=== PATIENT | female | born 1985 | race American Indian/Alaskan Native ===

== ENCOUNTER 2017-03-25 20:27 | Emergency (ER) | payer MEDICAID, OTHER ==
[2017-03-25 20:38] VITALS: BP 145/72; BMI 29.0
[2017-03-25 21:31] LABS: URINE BILIRUBIN NEGATIVE (NEGATIVE); URINE BLOOD MODERATE (NEGATIVE); URINE GLUCOSE (UA) NEGATIVE (NEGATIVE); URINE LEUKOCYTE ESTERASE LARGE Leu/uL (NEGATIVE); URINE NITRATE NEGATIVE (NEGATIVE); URINE PROTEIN NEGATIVE mg/dL (<30 mg/dL); URINE UROBILINOGEN 0.2 E.U./dL (<1 E.U./dL)
[2017-03-25 21:35] LABS: URINE APPEARANCE CLEAR (CLEAR); URINE COLOR LIGHT YELLOW (YELLOW)
[2017-03-25 22:08] LABS: ALB/GLOB RATIO 1.1 (1.1-1.8); ALBUMIN 4.4 g/dL (3.0-4.8); ALT/SGPT 32 U/L (7-56); AST/SGOT 31 U/L (15-39); BLOOD UREA NITROGEN 10 mg/dL (7-21); CALCIUM 9.2 mg/dL (8.4-10.5); GFR AFRICAN-AMERICAN > 60; GFR NON-AFRICAN AMERICAN > 60
[2017-03-25 22:09] LABS: HEMOGLOBIN 11.3 gm/dL (12.0-16.0); RBC 4.32 10^6/uL (3.5-6.1)
[2017-03-25 22:10] LABS: BASO # 0.04 K/mm3 (0.0-2.0); BASO % 0.8 % (0.0-3.0); EOS # 0.1 (0.0-0.7); GRAN # 2.77 (1.4-6.5); GRAN % 55.1 % (50.0-68.0); LYMPH # 1.8 (1.2-3.4); LYMPH % 35.7 % (22.0-35.0); MEAN CELL VOLUME 77.1 fL (80.0-105.0); MEAN CORPUSCULAR HEMOGLOBIN 26.2 pg (25.0-35.0); MEAN CORPUSCULAR HGB CONC 33.9 g/dl (31.0-37.0); MEAN PLATELET VOLUME 9.6 fl (7.0-11.0); MONO # 0.4 (0.1-0.6); MONO % 7.4 % (1.0-6.0); PLATELET COUNT 365 10^3/uL (120.0-450.0); RED CELL DISTRIBUTION WIDTH 14.6 % (11.5-14.5)
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
[2017-03-25 22:35] LABS: URINE BACTERIA MOD (NEG)
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
[2017-03-25 23:23] VITALS: PULSE 90; RESP 16; TEMP 98.5; O2SAT 99
== END 2017-03-25 23:23 | disposition home or self-care (01) ==
LOC: ED 20:27
DX: M54.9 Dorsalgia, unspecified (principal); V49.49XA Driver injured in collision with other motor vehicles in traffic accident, initial encounter; Y92.410 Unspecified street and highway as the place of occurrence of the external cause; O46.90 Antepartum hemorrhage, unspecified, unspecified trimester; O23.40 Unspecified infection of urinary tract in pregnancy, unspecified trimester; Z3A.00 Weeks of gestation of pregnancy not specified

== ENCOUNTER 2017-04-18 15:51 | Emergency (ER) | payer MEDICAID, OTHER ==
[2017-04-18 15:51] VITALS: BMI 29.0
[2017-04-18 16:11] VITALS: BP 114/69; PULSE 90; RESP 16; TEMP 98.9; O2SAT 98
[2017-04-18] MEDS ORDERED: Sodium Chloride 0.9% 1,000 ML IV STA (16:32)
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
[2017-04-18 17:07] LABS: BASO # 0.02 K/mm3 (0.0-2.0); BASO % 0.4 % (0.0-3.0); EOS % 0.7 % (1.5-5.0); GRAN # 3.37 (1.4-6.5); GRAN % 60.8 % (50.0-68.0); HEMOGLOBIN 11.2 g/dL (12.0-16.0); LYMPH # 1.7 (1.2-3.4); LYMPH % 31.4 % (22.0-35.0); MEAN CELL VOLUME 76.3 fl (80.0-105.0); MEAN CORPUSCULAR HEMOGLOBIN 26.2 pg (25.0-35.0); MEAN CORPUSCULAR HGB CONC 34.4 g/dl (31.0-37.0); MEAN PLATELET VOLUME 8.8 fl (7.0-11.0); MONO # 0.4 (0.1-0.6); MONO % 6.7 % (1.0-6.0); PLATELET COUNT 350 10^3/uL (120.0-450.0); RBC 4.27 10^6/uL (3.5-6.1); RED CELL DISTRIBUTION WIDTH 14.8 % (11.5-14.5); WHITE BLOOD COUNT 5.5 10^3/ul (4.5-11.0)
[2017-04-18 17:19] LABS: ALB/GLOB RATIO 1.1 (1.1-1.8); ALBUMIN 4.6 g/dL (3.0-4.8); ALT/SGPT 97 U/L (7-56); AST/SGOT 60 U/L (15-39); BLOOD UREA NITROGEN 7 mg/dL (7-21); CALCIUM 9.8 mg/dL (8.4-10.5); GFR AFRICAN-AMERICAN > 60; GFR NON-AFRICAN AMERICAN > 60
[2017-04-18 17:21] LABS: URINE APPEARANCE CLEAR (CLEAR); URINE BILIRUBIN NEGATIVE (NEGATIVE); URINE BLOOD NEGATIVE (NEGATIVE); URINE COLOR YELLOW (YELLOW); URINE GLUCOSE (UA) NEGATIVE (NEGATIVE); URINE LEUKOCYTE ESTERASE NEGATIVE Leu/uL (NEGATIVE); URINE NITRATE NEGATIVE (NEGATIVE); URINE PROTEIN NEGATIVE mg/dL (<30 mg/dL); URINE UROBILINOGEN 0.2 E.U./dL (<1 E.U./dL)
--- NOTE | 2017-04-18 17:54 | US ---
PROCEDURE: 1st trimester ultrasound HISTORY: pain + test 03/25 COMPARISON: 03/25/2017. TECHNIQUE: Standard protocol for this study/examination. FINDINGS: LMP: 02/28/2017 Prior examinations from the current : 03/25/2017 TECHNIQUE: Real-time 2D imaging, duplex and color Doppler. FINDINGS: Cardiac activity: Present Rate: 166 BPM Measurements: [place] rump length: 1.20 cm Gestational age based on CRL 7 weeks 3 days Gestational age based on gestational sac measurement 6 weeks 6 days. Gestational age derived from LMP: Seven weeks 1 day POLI based on LMP: 12/05/2017. POLI based on biometry: 12/04/2017. Gestational concordance documented Yolk sac identified Uterus: Unremarkable. No Cervical abnormalities: Negative examination for cervical dilatation or effacement. Subchorionic hemorrhage: None ADNEXA: Right: 4.3 x 4.4 x 2.6 cm. Normal Doppler arterial waveform documented. Left: 2.5 x 2.5 x 1.5 cm. Normal Doppler arterial waveform documented Fluid in the cul-de-sac: IMPRESSION: Seven weeks 1 day live intrauterine gestation.
== END 2017-04-18 18:33 | disposition home or self-care (01) ==
LOC: ED 15:51
DX: O20.0 Threatened abortion (principal); Z3A.01 Less than 8 weeks gestation of pregnancy
CPT/HCPCS: 76817; 80053; 81003; 84702; 85025; 87086; 99284; J7040

== ENCOUNTER 2019-01-13 22:17 | Emergency (ER) | payer MEDICAID, OTHER ==
[2019-01-13 22:26] VITALS: RESP 18; BMI 29.8
--- NOTE | 2019-01-13 22:57 | ED PDOC ---
Arrival/HPI - General Chief Complaint: Abdominal Pain Time Seen by Provider: 01/13/19 22:27 Historian: Patient - History of Present Illness Narrative History of Present Illness (Text): 01/13/19 22:58 A 33 year old female, whose past medical history includes anemia, presents to the emergency department complaining of lower abdominal cramping and diarrhea for 3 days. Patient reports 2 days prior to diarrhea starting, she had returned from [facility]. Patient denies any fever, chills, vomiting, chest pain, shortness of breath, any urinary symptoms, back pain or any other complaints at this time. PMD: Dr. Lexii Ross Past Medical History - Provider Review Nursing Documentation Reviewed: Yes Primary Care Provider: Yakelin Cardona - Travel History Have you recently traveled outside [place] w/in the past 3 mons?: Yes If Yes, travel location?: [facility] and [facility] - Infectious Disease Hx of Infectious Diseases: None - Tetanus Immunization Tetanus Immunization: Unknown - Hematological/Oncological Hx Anemia: Yes - Psychiatric Hx Substance Use: No - Anesthesia Hx Anesthesia: No Family/Social History - Physician Review Nursing Documentation Reviewed: Yes Family/Social History: No Known Family HX Smoking Status: Never Smoked Hx Alcohol Use: Yes Frequency of alcohol use: Few days per week Hx Substance Use: No Allergies/Home Meds Allergies/Adverse Reactions: Allergies No Known Allergies Allergy (Verified 01/13/19 22:26) Review of Systems - Physician Review All systems were reviewed & negative as marked: Yes - Review of Systems Constitutional: absent: Fatigue, Fevers, Night Sweats Respiratory: absent: SOB, Cough Cardiovascular: absent: Chest Pain, Palpitations Gastrointestinal: Abdominal Pain (lower abdominal cramping), Diarrhea. absent: Constipation, Nausea, Vomiting, Hematochezia, Hematemesis, Anorexia Genitourinary Female: absent: Dysuria, Frequency, Hematuria, Urine Output Changes Musculoskeletal: absent: Arthralgias, Back Pain, Neck Pain Skin: absent: Rash, Pruritis Neurological: absent: Headache, Dizziness Psychiatric: absent: Anxiety, Depression, Suicidal Ideation Physical Exam Vital Signs Reviewed: Yes Vital Signs Temp Pulse Resp BP Pulse Ox 01/13/19 22:25 97.7 F 84 18 119/77 99 Temperature: Afebrile Blood Pressure: Normal Pulse: Regular Respiratory Rate: Normal Appearance: Positive for: Well-Appearing, Non-Toxic, Comfortable Pain Distress: None Mental Status: Positive for: Alert and Oriented X 3 - Systems Exam Head: Present: Atraumatic Mouth: Present: Moist Mucous Membranes Neck: Present: Normal Range of Motion Respiratory/Chest: Present: Clear to Auscultation, Good Air Exchange. No: Respiratory Distress, Accessory Muscle Use Cardiovascular: Present: Regular Rate and Rhythm, Normal S1, S2. No: Murmurs Abdomen: Present: Tenderness (minimal tenderness in lower abd). No: Distention, Peritoneal Signs, Rebound, Guarding Back: Present: Normal Inspection Upper Extremity: Present: Normal Inspection. No: Cyanosis, Edema Lower Extremity: Present: Normal Inspection. No: Edema Neurological: Present: GCS=15, Speech Normal Skin: Present: Warm, Dry, Normal Color. No: Rashes Psychiatric: Present: Alert, Oriented x 3 Medical Decision Making ED Course and Treatment: 01/13/19 23:00 33 year old female with lower abdominal cramping and diarrhea. Plan: -- Abd/Pelvis CT -- Labs -- Urinalysis -- Reassess and disposition Progress Notes: Patient is nontoxic well appearing with stable vital signs CBC within normal limits CMP within normal limits Urinalysis within normal limits CAT scan : 01/14/19 01:04 COMMENTS: Diffuse mucosal colonic enhancement. Fluid filled small bowels. Fluid-filled colon. Fluid-filled stomach. The liver is of uniform attenuation without mass or defect. There is no intra or extrahepatic biliary ductal dilatation. The spleen is normal. The gallbladder is within normal limits. The pancreas is of normal contour and attenuation characteristics. There is no evidence of adrenal mass. Both kidneys demonstrate prompt and equal nephrograms. The kidneys are normal in size, shape and configuration. There is no evidence of renal or ureteral mass. No renal or ureteral calculi are identified. There is no hydroureter or hydronephrosis. No evidence for appendicitis. No evidence for small or large bowel obstruction. There is no evidence of abdominal ascites or lymphadenopathy. There is no evidence of intrinsic or extrinsic bladder mass. There is no pelvic ascites or lymphadenopathy. Images of the lung bases show no evidence of pleural or parenchymal mass. There are no pleural effusions. The bony structures are free of lytic or blastic lesions. IMPRESSION: Uncomplicated enterocolitis. Thank you for your kind referral of this patient. Electronically signed on January 14, 2019 12:49:07 AM EDT by: Edwina Padilla M.D., Certified by RONEN, SCOT, Neuroradiology 01/14/19 01:38 Patient reassessment: Patient is nontoxic well-appearing in no distress with stable vital signs. Patient started on Vantin and Flagyl p.o. for colitis advised follow-up with the primary care physician and GI doctor within the next 2 days. Advised increasing fluids and taking medications as prescribed. Advised me to return if symptoms worsen persist or if new concerning symptoms develop Discussed all results with patient in depth. Patient verbalizes understanding of discharge instructions and need for immediate followup. All aspects of this case were discussed the attending of record. Impression: Abdominal pain, colitis Motrin every 6 hours as needed for pain Pepcid one tablet daily Vantin 1 tablet twice daily x10 days Flagyl one tablet 3 times daily x10 days Increase fluids Follow up with primary care physician within the next 2 days follow-up with a GI doctor within the next 2 days Return immediately if symptoms worsen persist or if new concerning symptoms develop Reassessment Condition: Re-examined - RAD Interpretation Radiology Orders: 01/13/19 22:55 ABD & PELVIS IV CONTRAST ONLY [CT] Stat - Scribe Statement The provider has reviewed the documentation as recorded by the Scribe Marla Angulo Provider Scribe Attestation: All medical record entries made by the Scribe were at my direction and personally dictated by me. I have reviewed the chart and agree that the record accurately reflects my personal performance of the history, physical exam, medical decision making, and the department course for this patient. I have also personally directed, reviewed, and agree with the discharge instructions and disposition. Disposition/Present on Arrival - Present on Arrival Any Indicators Present on Arrival: No History of DVT/PE: No History of Uncontrolled Diabetes: No Urinary Catheter: No History of Decub. Ulcer: No History Surgical Site Infection Following: None - Disposition Have Diagnosis and Disposition been Completed?: Yes Diagnosis: Colitis, Abdominal pain, Diarrhea Disposition: HOME/ ROUTINE Disposition Time: 01:15 Patient Plan: Discharge Condition: GOOD Discharge Instructions (ExitCare): Acute Abdomen (Belly Pain), Adult (DC), Diarrhea and Traveler's Diarrhea, Adult (DC), Colitis (DC) Additional Instructions: Motrin every 6 hours as needed for pain Pepcid one tablet daily Vantin 1 tablet twice daily x10 days Flagyl one tablet 3 times daily x10 days Increase fluids Follow up with primary care physician within the next 2 days follow-up with a GI doctor within the next 2 days Return immediately if symptoms worsen persist or if new concerning symptoms develop Prescriptions: Cefpodoxime [Vantin] 100 mg PO BID #20 tab Famotidine [Pepcid] 20 mg PO DAILY #30 tab Metronidazole [Flagyl] 500 mg PO TID #30 tab Referrals: Lexii Ross DO [Primary Care Provider] - Follow up with primary Indigo Hand MD [Staff Provider] - Follow up with primary Luz Montgomery MD [Medical Doctor] - Follow up with primary [facility] [Outside] - Follow up with primary Forms: [facility] ([place]an), WORK NOTE
[2019-01-13 23:21] LABS: BASO # 0.02 K/mm3 (0.0-2.0); BASO % 0.5 % (0.0-3.0); EOS # 0.1 (0.0-0.7); EOS % 1.2 % (1.5-5.0); HEMOGLOBIN 9.9 g/dL (12.0-16.0); LYMPH # 1.9 (1.2-3.4); LYMPH % 44.5 % (22.0-35.0); MEAN CORPUSCULAR HEMOGLOBIN 26.1 pg (25.0-35.0); MEAN CORPUSCULAR HGB CONC 32.6 g/dl (31.0-37.0); MEAN PLATELET VOLUME 8.8 fl (7.0-11.0); MONO # 0.2 (0.1-0.6); MONO % 4.8 % (1.0-6.0); RBC 3.8 10^6/uL (3.5-6.1); RED CELL DISTRIBUTION WIDTH 14.8 % (11.5-14.5); WHITE BLOOD COUNT 4.3 10^3/uL (4.5-11.0)
[2019-01-13 23:28] LABS: ALBUMIN 4.1 g/dL (3.0-4.8); ALT/SGPT 13 U/L (7-56); AST/SGOT 29 U/L (14-36); BLOOD UREA NITROGEN 14 mg/dL (7-21); CALCIUM 8.6 mg/dL (8.4-10.5); GFR NON-AFRICAN AMERICAN > 60; LIPASE 126 U/L (23-300)
[2019-01-14] MEDS ORDERED: Iohexol 350 MG/100 ML VIAL ONE (00:18)
[2019-01-14 00:26] LABS: PH,URINE 7.5 (4.7-8.0); URINE BILIRUBIN NEGATIVE (NEGATIVE); URINE BLOOD MODERATE (NEGATIVE); URINE GLUCOSE (UA) NEGATIVE (NEGATIVE); URINE LEUKOCYTE ESTERASE NEGATIVE Leu/uL (NEGATIVE); URINE PROTEIN NEGATIVE mg/dL (<30 mg/dL); URINE UROBILINOGEN 0.2 E.U./dL (<1 E.U./dL)
[2019-01-14 00:30] LABS: URINE APPEARANCE CLEAR (CLEAR); URINE COLOR YELLOW (YELLOW)
[2019-01-14 00:39] LABS: URINE EPITHELIAL CELLS MANY /hpf (0-5); URINE RBC 0 - 2 /hpf (0-2)
[2019-01-14 00:40] LABS: URINE BACTERIA SMALL /hpf
[2019-01-14] MEDS ORDERED: Cefpodoxime (Vantin) 100 mg Tab PO STA (01:35)
[2019-01-14 01:52] VITALS: BP 142/68; PULSE 82; TEMP 97.6; O2SAT 98
--- NOTE | 2019-01-14 10:07 | CT ---
Date of service: 01/14/2019 PROCEDURE: CT Abdomen and Pelvis with contrast HISTORY: abd pain COMPARISON: None available. TECHNIQUE: Contrast dose: 100 mL Omnipaque 350 IV Radiation dose: Total exam DLP = 751.21 mGy-cm. This CT exam was performed using one or more of the following dose reduction techniques: Automated exposure control, adjustment of the mA and/or kV according to patient size, and/or use of iterative reconstruction technique. FINDINGS: LOWER THORAX: No visible consolidation, pleural effusion, or pneumothorax. LIVER: Unremarkable. GALLBLADDER AND BILE DUCTS: Contracted state of gallbladder. Otherwise unremarkable. PANCREAS: Unremarkable. SPLEEN: Unremarkable. ADRENALS: Unremarkable. KIDNEYS AND URETERS: The kidneys enhance symmetrically. No hydronephrosis or obstructing calculus identified. VASCULATURE: No aortic aneurysm. No atherosclerotic calcification or mural plaque present. BOWEL: Stomach is nondistended. Lack of oral contrast limits evaluation for bowel pathology. Bowel loops appear within normal limits of caliber without evidence of obstruction. Wall thickening of the right colon with mild associated inflammatory changes and adjacent prominent mesenteric lymph nodes. Small bowel loops appear thickened. Overall appearance consistent with enterocolitis. Correlate clinically. APPENDIX: The appendix appears within normal limits of caliber. No secondary signs of acute appendicitis. PERITONEUM: No significant free fluid. No definite free air. LYMPH NODES: No bulky adenopathy identified. BLADDER: Unremarkable. REPRODUCTIVE: Uterus is present. BONES: No acute osseous abnormality is detected. OTHER FINDINGS: None. IMPRESSION: Wall thickening of the right colon with mild associated inflammatory changes and adjacent prominent mesenteric lymph nodes. Small bowel loops appear thickened. Overall appearance consistent with enterocolitis. Correlate clinically. Preliminary impression was provided by [employer].
== END 2019-01-14 01:54 | disposition home or self-care (01) ==
LOC: ED 22:17
DX: K52.9 Noninfective gastroenteritis and colitis, unspecified (principal); D64.9 Anemia, unspecified
CPT/HCPCS: 74177; 80053; 81001; 81025; 83690; 85025; 99283; Q9967